=== PATIENT | female | born 1950 | race Caucasian/White ===

== ENCOUNTER 2018-10-30 09:48 | Emergency (ER) | payer MEDICARE ==
[~2018-10-30] VITALS: Ht 152.4 cm; Wt 43.7 kg
[~2018-10-30 09:48] MED LIST: ACET-2267 PO; ACHD5005 PO; ASPI-932 PO; DICY10CA12 PO; METO-370 PO; MONT10TA21 PO; OMEP20TA7 PO; RT-ALBUINH IH
--- NOTE | 2018-10-30 09:53 | ED General ---
General Stated Complaint: RECTAL BLEEDING History of Present Illness Date Seen by Provider: Oct 30, 2018 Time Seen by Provider: 10:05 Initial Comments Patient is a 68 y/o female who presents to the ER today c/o rectal bleeding. Patient states she had three episodes of bloody stools this am. She reports normally having three BM's in the am. Today she noticed some dark red blood on the first episode. 2nd was also dark red and with clots present. Third was similar but without clots. No abdominal pain. Denies recent hx of constipation. No reported hx of hemorrhoids. She does endorse one prior episode of blood stools but was many years earlier after some diarrhea. She does receive colonoscopies and her next is due in 2019. No dietary changes. No recent travel or other illness. No chest pain or dyspnea or palpitations. Allergies and Home Medications Allergies Coded Allergies: adhesive (Verified Allergy, Unknown, RASH, 08/06/15) aspirin (Verified Allergy, Unknown, 08/06/15) azithromycin (Verified Allergy, Unknown, heart palpatations, 08/06/15) cilostazol (Verified Allergy, Unknown, 08/06/15) ciprofloxacin (Verified Allergy, Unknown, dizziness, 08/06/15) clopidogrel (Verified Allergy, Unknown, HIVES, 08/06/15) dipyridamole (Verified Allergy, Unknown, 08/06/15) pravastatin (Verified Allergy, Unknown, muscle pain and weakness, 08/06/15) simvastatin (Verified Allergy, Unknown, muscle pain and weakness, 08/06/15) ticlopidine (Verified Allergy, Unknown, 08/06/15) torsemide (Verified Allergy, Unknown, HIVES, 08/06/15) Antihistamines - Alkylamine (Verified Adverse Reaction, Unknown, makes heart race, 08/06/15) Uncoded Allergies: aspirin coated only (Allergy, Unknown, bleeding nose and gums, burning in stomach, 08/06/15) Home Medications Acetaminophen 500 Mg Tablet, 500-1,000 MG PO Q6H PRN for PAIN, (Reported) take 1-2 (500mg) tabs Albuterol Sulfate 8.5 Gm Hfa.aer.ad, 1-2 PUFF IH Q4H PRN for SHORTNESS OF BREATH, (Reported) Aspirin 325 Mg Tablet.dr, 325 MG PO DAILY, (Reported) Dicyclomine HCl 10 Mg Capsule, 10 MG PO DAILY, (Reported) Docusate Sodium 100 Mg Capsule, 100 MG PO HS, (Reported) Hydrocodone Bit/Acetaminophen 1 Each Tablet, 1-2 EACH PO Q4H PRN for PAIN Prescribed by: GELACIO KOROMA on 08/09/15 1044 Metoprolol Succinate 50 Mg Tab.er.24h, 50 MG PO HS, (Reported) Montelukast Sodium 10 Mg Tablet, 10 MG PO HS, (Reported) Omeprazole 20 Mg Tablet.dr, 20 MG PO DAILY PRN for HEARTBURN, (Reported) Patient Home Medication List Home Medication List Reviewed: Yes Review of Systems Review of Systems Constitutional: no symptoms reported EENTM: no symptoms reported Respiratory: no symptoms reported Cardiovascular: no symptoms reported Gastrointestinal: see HPI Musculoskeletal: no symptoms reported Skin: no symptoms reported Psychiatric/Neurological: No Symptoms Reported Hematologic/Lymphatic: No Symptoms Reported All Other Systems Reviewed Negative Unless Noted: Yes Past Fndzihh-[id number]-Qqgtdn Hx Past Medical History Diverticulosis, Hiatal Hernia, Irritable Bowel Degenerate Disk Disease, Arthritis, Fibromyalgia Anxiety Family Medical History Alcoholism G8 BROTHER Arthritis 19 FATHER 19 MOTHER Cardiovascular disease 19 FATHER 19 MOTHER Cataracts 19 FATHER 19 MOTHER Completed stroke grandparents Diabetes mellitus 19 MOTHER Drug abuse G8 BROTHER FH: breast cancer G8 SISTER Gastroenteritis 19 MOTHER Hypertension 19 MOTHER Myocardial infarction 19 FATHER 19 MOTHER Parkinson's disease 19 MOTHER Respiratory disorder 19 MOTHER Thyroid disease G8 BROTHER G8 SISTER Physical Exam Vital Signs Vital Signs - First Documented 10/30/18 09:52 Temp 98.2 Pulse 77 Resp 18 B/P (MAP) 184/62 (102) Pulse Ox 96 O2 Delivery Room Air Capillary Refill : Height, Weight, BMI Height: 5'0.00" Weight: 97lbs. 7.0oz. 44.822785xp; 16.14 BMI Method: General Appearance: No Apparent Distress, WD/WN Eyes: Bilateral Eye Normal Inspection, Bilateral Eye PERRL, Bilateral Eye EOMI HEENT: PERRL/EOMI, Normal ENT Inspection, Pharynx Normal Neck: Full Range of Motion Respiratory: Chest Non Tender, Lungs Clear, Normal Breath Sounds Cardiovascular: Regular Rate, Rhythm, No Edema, No Gallop, No JVD Gastrointestinal: Normal Bowel Sounds, Non Tender, Soft Back: Normal Inspection Extremity: Normal Capillary Refill, Normal Inspection, Normal Range of Motion Neurologic/Psychiatric: Alert, Oriented x3, No Motor/Sensory Deficits Skin: Normal Color, Warm/Dry Progress/Results/Core Measures Suspected Sepsis SIRS Temperature: Pulse: Respiratory Rate: Laboratory Tests 10/30/18 10:00: White Blood Count 9.4 Blood Pressure / Mean: Laboratory Tests 10/30/18 10:00: Creatinine 0.88, INR Comment 1.1, Platelet Count 238, Total Bilirubin 0.3 Results/Orders Lab Results Laboratory Tests Test 10/30/18 10:00 Range/Units White Blood Count 9.4 4.3-11.0 10^3/uL Red Blood Count 5.14 4.35-5.85 10^6/uL Hemoglobin 16.4 H 11.5-16.0 G/DL Hematocrit 50 35-52 % Mean Corpuscular Volume 98 80-99 FL Mean Corpuscular Hemoglobin 32 25-34 PG Mean Corpuscular Hemoglobin Concent 33 32-36 G/DL Red Cell Distribution Width 12.5 10.0-14.5 % Platelet Count 238 130-400 10^3/uL Mean Platelet Volume 9.6 7.4-10.4 FL Neutrophils (%) (Auto) 80 H 42-75 % Lymphocytes (%) (Auto) 13 12-44 % Monocytes (%) (Auto) 5 0-12 % Eosinophils (%) (Auto) 1 0-10 % Basophils (%) (Auto) 1 0-10 % Neutrophils # (Auto) 7.6 1.8-7.8 X 10^3 Lymphocytes # (Auto) 1.2 1.0-4.0 X 10^3 Monocytes # (Auto) 0.5 0.0-1.0 X 10^3 Eosinophils # (Auto) 0.1 0.0-0.3 10^3/uL Basophils # (Auto) 0.1 0.0-0.1 10^3/uL Neutrophils % (Manual) 75 % Lymphocytes % (Manual) 12 % Monocytes % (Manual) 4 % Eosinophils % (Manual) 3 % Basophils % (Manual) 2 % Band Neutrophils 4 % Blood Morphology Comment NORMAL Prothrombin Time 14.1 12.2-14.7 SEC INR Comment 1.1 0.8-1.4 Activated Partial Thromboplast Time 25 24-35 SEC Sodium Level 140 135-145 MMOL/L Potassium Level 4.0 3.6-5.0 MMOL/L Chloride Level 98 98-107 MMOL/L Carbon Dioxide Level 27 21-32 MMOL/L Anion Gap 15 H 5-14 MMOL/L Blood Urea Nitrogen 19 H 7-18 MG/DL Creatinine 0.88 0.60-1.30 MG/DL Estimat Glomerular Filtration Rate > 60 BUN/Creatinine Ratio 22 Glucose Level 123 H 70-105 MG/DL Calcium Level 10.0 8.5-10.1 MG/DL Corrected Calcium 8.5-10.1 MG/DL Total Bilirubin 0.3 0.1-1.0 MG/DL Aspartate Amino Transf (AST/SGOT) 17 5-34 U/L Alanine Aminotransferase (ALT/SGPT) 9 0-55 U/L Alkaline Phosphatase 93 40-136 U/L Total Protein 7.1 6.4-8.2 GM/DL Albumin 4.7 H 3.2-4.5 GM/DL My Orders Orders - JOE AGUILERA DO Cbc And Manual Diff (10/30/18 09:57) Comprehensive Metabolic Panel (10/30/18 09:57) Protime With Inr (10/30/18 09:57) Partial Thromboplastin Time (10/30/18 09:57) Vital Signs/I&O 10/30/18 09:52 Temp 98.2 Pulse 77 Resp 18 B/P (MAP) 184/62 (102) Pulse Ox 96 O2 Delivery Room Air Capillary Refill : Progress Note : Time: 10:15 Progress Note Patient is seen and examined. No distress. No abdominal pain. No findings on ROS suspicious for infectious process or acute anemia. Will check basic labs. Patient has no complaints other than lower GI bleeding. No n/v or epigastric pain. No fever/chills. 11:00: All results are reviewed and discussed with the patient. No acute findings on lab panel. No anemia. Natural course of LGI bleeding is discussed with the patient and she is provided reassurance that the bleeding will most likely stop in the next 2 days. S/s of anemia are also discussed and all of her questions are answered. Patient will contact her primary physician Thursday to request GI referral. Close return precautions are discussed and she is advised to come back to the ER for any severely worsening symptoms, abdominal pain, lightheadedness, palpitations, syncope or near-syncope, or any other concerns. All of her questions are answered and she is agreeable to the plan of care. Departure Impression Primary Impression: Lower GI bleeding Disposition: HOME, SELF-CARE Condition: Stable Departure-Patient Inst. Referrals: ALEX SEXTON MD (PCP/Family) Primary Care Physician Patient Instructions: Gastrointestinal Bleeding JOE AGUILERA DO Oct 30, 2018 09:53
[2018-10-30 10:12] LABS: HEMATOCRIT 50 % (35-52); HEMOGLOBIN 16.4 G/DL (11.5-16.0); LYMPHOCYTES % (AUTO) 13 % (12-44); MEAN CORPUSCULAR HEMOGLOBIN 32 PG (25-34); MEAN CORPUSCULAR HGB CONC 33 G/DL (32-36); MEAN CORPUSCULAR VOLUME 98 FL (80-99); MEAN PLATELET VOLUME 9.6 FL (7.4-10.4); NEUTROPHILS % (AUTO) 80 % (42-75); PLATELET COUNT 238 10^3/uL (130-400); RED CELL DISTRIBUTION WIDTH 12.5 % (10.0-14.5); WHITE BLOOD COUNT 9.4 10^3/uL (4.3-11.0)
[2018-10-30 10:13] LABS: BASOPHILS # (AUTO) 0.1 10^3/uL (0.0-0.1); BASOPHILS % (AUTO) 1 % (0-10); EOSINOPHILS # (AUTO) 0.1 10^3/uL (0.0-0.3); EOSINOPHILS % (AUTO) 1 % (0-10); LYMPHOCYTES # (AUTO) 1.2 X 10^3 (1.0-4.0); MONOCYTES # (AUTO) 0.5 X 10^3 (0.0-1.0); MONOCYTES % (AUTO) 5 % (0-12); NEUTROPHILS # (AUTO) 7.6 X 10^3 (1.8-7.8)
[2018-10-30 10:22] LABS: BAND NEUTROPHILS 4 %; BASOPHILS % (MANUAL) 2 %; EOSINOPHILS % (MANUAL) 3 %; INR 1.1 (0.8-1.4); LYMPHOCYTES % (MANUAL) 12 %; MONOCYTES % (MANUAL) 4 %; NEUTROPHILS % (MANUAL) 75 %; PROTHROMBIN TIME PATIENT 14.1 SEC (12.2-14.7); RBC MORPH NORMAL
[2018-10-30] MEDS ORDERED: DOCU-143 PO (10:24)
[2018-10-30] MEDS ORDERED: ASPI325T32 PO (10:24)
[2018-10-30 10:30] LABS: ALANINE AMINOTRANSFERASE 9 U/L (0-55); ALBUMIN 4.7 GM/DL (3.2-4.5); ALKALINE PHOSPHATASE 93 U/L (40-136); BILIRUBIN,TOTAL 0.3 MG/DL (0.1-1.0); BUN/CREATININE RATIO 22; CARBON DIOXIDE 27 MMOL/L (21-32); CHLORIDE 98 MMOL/L (98-107); CREATININE SERUM 0.88 MG/DL (0.60-1.30); GFR ESTIMATED > 60; GLUCOSE 123 MG/DL (70-105); SODIUM 140 MMOL/L (135-145); TOTAL PROTEIN 7.1 GM/DL (6.4-8.2)
[2018-10-30 10:56] VITALS: BP 143/73
== END 2018-10-30 10:56 | disposition home or self-care (01) ==
LOC: EDUNIT# 09:48 → ER FS 09:50
DX: K92.2 Gastrointestinal hemorrhage, unspecified (principal); K58.9 Irritable bowel syndrome, unspecified; M79.7 Fibromyalgia; F41.9 Anxiety disorder, unspecified; Z87.19 Personal history of other diseases of the digestive system; Z88.6 Allergy status to analgesic agent; Z88.1 Allergy status to other antibiotic agents; Z88.8 Allergy status to other drugs, medicaments and biological substances; Z88.5 Allergy status to narcotic agent; Z79.82 Long term (current) use of aspirin; Z82.49 Family history of ischemic heart disease and other diseases of the circulatory system; Z80.3 Family history of malignant neoplasm of breast
CPT/HCPCS: 36415; 80053; 85007; 85027; 85610; 85730; 99282

== ENCOUNTER → 2019-09-05 | Outpatient (CLI) | payer BC ==
[~2019-09-05] MED LIST changes: +ASPI325T32 PO; +DOCU-143 PO; -METO-370 PO; +METO50TA7 PO
[2019-09-05 08:28] LABS: BASOPHILS % (AUTO) 1 % (0-10); EOSINOPHILS % (AUTO) 2 % (0-10); HEMATOCRIT 48 % (35-52); LYMPHOCYTES % (AUTO) 26 % (12-44); MEAN CORPUSCULAR HEMOGLOBIN 33 PG (25-34); MEAN CORPUSCULAR HGB CONC 34 G/DL (32-36); MEAN CORPUSCULAR VOLUME 97 FL (80-99); MEAN PLATELET VOLUME 9.6 FL (7.4-10.4); MONOCYTES % (AUTO) 8 % (0-12); PLATELET COUNT 230 10^3/uL (130-400); RED CELL DISTRIBUTION WIDTH 12.7 % (10.0-14.5); WHITE BLOOD COUNT 6.6 10^3/uL (4.3-11.0)
[2019-09-05 08:29] LABS: BASOPHILS # (AUTO) 0.1 10^3/uL (0.0-0.1); EOSINOPHILS # (AUTO) 0.1 10^3/uL (0.0-0.3); LYMPHOCYTES # (AUTO) 1.7 X 10^3 (1.0-4.0); MONOCYTES # (AUTO) 0.6 X 10^3 (0.0-1.0); NEUTROPHILS # (AUTO) 4.1 X 10^3 (1.8-7.8); NEUTROPHILS % (AUTO) 63 % (42-75)
[2019-09-05 08:53] LABS: SODIUM 142 MMOL/L (135-145)
[2019-09-05 08:54] LABS: ALANINE AMINOTRANSFERASE 11 U/L (0-55); ALBUMIN 4.3 GM/DL (3.2-4.5); ALKALINE PHOSPHATASE 90 U/L (40-136); BILIRUBIN,TOTAL 0.4 MG/DL (0.1-1.0); BUN/CREATININE RATIO 16; CALCIUM 9.6 MG/DL (8.5-10.1); CARBON DIOXIDE 29 MMOL/L (21-32); CHLORIDE 100 MMOL/L (98-107); CREATININE SERUM 0.85 MG/DL (0.60-1.30); GFR ESTIMATED > 60; GLUCOSE 116 MG/DL (70-105); TOTAL PROTEIN 6.8 GM/DL (6.4-8.2)
[2019-09-05 15:14] LABS: CHOLESTEROL 183 MG/DL (< 200); HDL CHOLESTEROL 62 MG/DL (40-60); TRIGLYCERIDES 108 MG/DL (<150); VLDL CHOLESTEROL 22 MG/DL (5-40)
== END ==
LOC: LAB FS 08:03
PROVIDERS: ATTEND Family Medicine
DX: I70.213 Atherosclerosis of native arteries of extremities with intermittent claudication, bilateral legs (principal); I10 Essential (primary) hypertension
CPT/HCPCS: 36415; 80053; 80061; 85025

== ENCOUNTER → 2020-09-04 | Outpatient (CLI) | payer BC, MEDICARE ==
[2020-09-04 09:35] LABS: BUN/CREATININE RATIO 19; CALCIUM 9.5 MG/DL (8.5-10.1); CARBON DIOXIDE 29 MMOL/L (21-32); CHLORIDE 101 MMOL/L (98-107); CREATININE SERUM 0.88 MG/DL (0.60-1.30); GFR ESTIMATED > 60; GLUCOSE 103 MG/DL (70-105); POTASSIUM 4.2 MMOL/L (3.6-5.0); SODIUM 138 MMOL/L (135-145)
[2020-09-04 09:36] LABS: ALANINE AMINOTRANSFERASE 13 U/L (0-55); ALBUMIN 4.3 GM/DL (3.2-4.5); ALKALINE PHOSPHATASE 87 U/L (40-136); BILIRUBIN,TOTAL 0.3 MG/DL (0.1-1.0); TOTAL PROTEIN 6.4 GM/DL (6.4-8.2)
[2020-09-04 14:58] LABS: CHOLESTEROL 173 MG/DL (< 200); HDL CHOLESTEROL 65 MG/DL (40-60); TRIGLYCERIDES 69 MG/DL (<150); VLDL CHOLESTEROL 14 MG/DL (5-40)
== END ==
LOC: LAB FS 08:39
PROVIDERS: ATTEND Family Medicine
DX: Z13.220 Encounter for screening for lipoid disorders (principal); I10 Essential (primary) hypertension
CPT/HCPCS: 36415; 80053; 80061

== ENCOUNTER → 2020-09-18 | Outpatient (CLI) | payer MEDICARE ==
[~2020-09-18] MED LIST changes: +CATHETER FLUSH 10 ML SYR IV PRN; +HOLD METFORMIN - RECEIVED CONTRAST 20 ML VIAL IV SCH; +IOHEXOL 350 MG/ML 100 ML (OMNIPAQUE 350) VIAL IV ONE; +NS 100 ML (IVPB) BAG IV ONE
--- NOTE | 2020-09-18 11:26 | Diagnostic Imaging Report ---
EXAMINATION: CT chest with intravenous contrast. TECHNIQUE: Multiple contiguous axial images were obtained through the chest after the uneventful administration of intravenous contrast. All CT scans use one or more of the following dose optimizing techniques: automated exposure control, MA and/or KvP adjustment based on patient size and exam type or iterative reconstruction. HISTORY: Lung nodule. COMPARISON: None available. FINDINGS: There is no edema or pneumonia. No pleural effusion. No pneumothorax. There is an 8 mm average diameter left lower lobe pulmonary nodule (series 5, image 100). There is calcified granuloma in the left upper lobe. Lungs are severely emphysematous. There is mild scarring in the upper lobes. There is no axillary or supraclavicular lymphadenopathy. There is no mediastinal lymphadenopathy. Heart size is normal. There are severe coronary artery calcifications. No pericardial effusion. Aorta is normal in caliber. Limited views of the upper abdomen show calcified granulomas in the liver and spleen. The abdominal aorta is atherosclerotic and the visualized portion is narrowed. There are no suspicious osseous lesions. IMPRESSION: 1. Left lower lobe pulmonary nodule measuring 8 mm in average diameter. According to the Fleischner Society guidelines: Recommend CT at 6-12 months and then again at 18-24 months (the second CT is optional in a low risk patient) Dictated by: Dictated on workstation # [id number]
== END ==
LOC: RAD FS 09:38
PROVIDERS: ATTEND Family Medicine
DX: R91.1 Solitary pulmonary nodule (principal)
CPT/HCPCS: 71260

== ENCOUNTER → 2021-10-30 | Outpatient (CLI) | payer MEDICARE ==
[~2021-10-30] MED LIST changes: -CATHETER FLUSH 10 ML SYR IV PRN; -HOLD METFORMIN - RECEIVED CONTRAST 20 ML VIAL IV SCH; -IOHEXOL 350 MG/ML 100 ML (OMNIPAQUE 350) VIAL IV ONE; -NS 100 ML (IVPB) BAG IV ONE; +OMEP20TA56 PO; -OMEP20TA7 PO
[2021-10-30 10:50] LABS: ALANINE AMINOTRANSFERASE 11 U/L (0-55); ALBUMIN 4.6 GM/DL (3.2-4.5); ALKALINE PHOSPHATASE 76 U/L (40-136); BILIRUBIN,TOTAL 0.4 MG/DL (0.1-1.0); BUN/CREATININE RATIO 21; CALCIUM 9.8 MG/DL (8.5-10.1); CARBON DIOXIDE 28 MMOL/L (21-32); CHLORIDE 97 MMOL/L (98-107); CREATININE SERUM 0.77 MG/DL (0.60-1.30); GFR ESTIMATED 81; GLUCOSE 107 MG/DL (70-105); POTASSIUM 4.4 MMOL/L (3.6-5.0); SODIUM 136 MMOL/L (135-145); TOTAL PROTEIN 7.1 GM/DL (6.4-8.2)
[2021-10-30 15:00] LABS: TRIGLYCERIDES 83 MG/DL (<150); VLDL CHOLESTEROL 17 MG/DL (5-40)
[2021-10-30 15:05] LABS: CHOLESTEROL 198 MG/DL (< 200)
[2021-10-30 15:06] LABS: HDL CHOLESTEROL 71 MG/DL (40-60)
== END ==
LOC: LAB FS 09:31
PROVIDERS: ATTEND Family Medicine
DX: I10 Essential (primary) hypertension (principal)
CPT/HCPCS: 36415; 80053; 80061